=== PATIENT | male | born 1985 | race Caucasian/White ===

== ENCOUNTER 2020-12-04 08:24 | Emergency (ER) | payer OTHER ==
[~2020-12-04] VITALS: Ht 175.3 cm; Wt 95.0 kg
[2020-12-04] MEDS ORDERED: ORPH-16 PO (08:56)
[2020-12-04] MEDS ORDERED: PRED20TA PO (08:56)
[2020-12-04] MEDS ORDERED: LIDO700A21 TP (08:56)
--- NOTE | 2020-12-04 08:57 | PHYS DOC ---
Past History Additional Past Medical Histor: bulging discs Past Surgical History: Other Additional Past Surgical Histo: R knee scope Smoking: Non-smoker Alcohol Use: Occasionally Drug Use: None General Adult EDM: Chief Complaint: BACK PAIN OR INJURY HPI: HPI: 35-year-old male presents via EMS with report of low back pain and numbness to his right lower leg and foot. Reports sensation that he has a weight on his leg that he is unable to move. Patient reports [place] [facility] [place] Patient reports has had a similar episode in the past. Patient reports he has had an MRI approximately 2 years ago that noted bulging disks. At that time patient underwent physical therapy with interval resolution of his symptoms. Patient reports he recently has not been performing his home physical therapy. Patient reports upon starting the symptoms patient stopped the exercises he was performing. Patient was seen and advised to present directly to the emergency department via EMS. Patient reports symptoms have improved upon arrival to the ER. Denies loss of bowel or bladder. Review of Systems: Review of Systems: Constitutional: Denies fever or chills Eyes: Denies redness or eye pain HENT: Denies nasal congestion or sore throat Respiratory: Denies cough or shortness of breath Cardiovascular: Denies chest pain or palpitations GI: Denies abdominal pain, nausea, or vomiting : Denies dysuria or hematuria Musculoskeletal: Reports some low back "tightening "and weakness in his right leg and foot Integument: Denies rash or skin lesions Neurologic: Denies headache; reports focal weakness and paresthesias in his right leg and foot Complete systems were reviewed and found to be within normal limits, except as documented in this note. Allergies: Allergies: Allergies Coded Allergies Type Severity Reaction Last Updated Verified No Known Drug Allergies 12/04/20 No Physical Exam: PE: Constitutional: Well developed, well nourished, no acute distress, non-toxic appearance HENT: Normocephalic, atraumatic Eyes: PERRL, EOMI, conjunctiva normal, no discharge Neck: Normal range of motion, no tenderness, supple Lungs & Thorax: No respiratory distress, equal chest rise and fall Abdomen: Soft, no tenderness Skin: Warm, dry, no erythema, no rash Back: No midline tenderness, right paraspinal lumbar/sacral tenderness on palpation, no CVA tenderness Extremities: No tenderness, ROM intact, no edema, bilateral DP/PT +2 pulses, cap refill to bilateral lower extremities less than 2 seconds Neurologic: Alert and oriented X 3, patient reports some slight decrease sensation to right leg in comparison to left, strength 4 out of 5 of foot with plantar and dorsi flexion Psychologic: Affect normal, judgment normal Current Patient Data: Vital Signs: Vital Signs Date Time Temp Pulse Resp B/P (MAP) Pulse Ox O2 Delivery O2 Flow Rate FiO2 12/04/20 08:28 98.1 88 16 120/68 (85) 97 Room Air EKG: EKG: [] Radiology/Procedures: Radiology/Procedures: [] Heart Score: C/O Chest Pain: N/A Course & Med Decision Making: Course & Med Decision Making Patient presents with HPI and physical exam concerning for acute on chronic back pain with radiculopathy component. No history of trauma. No midline bony tenderness noted. Distal pulses intact. No signs of ischemia noted. Symptoms appear more neuropathic in nature. Symptomatic treatment provided. Patient stable for discharge with outpatient follow-up with PCP/pain management. Pain management referral provided. Discussed findings and plan with patient, who acknowledges understanding and agreement. Shalini Disclaimer: Shalini Disclaimer: This electronic medical record was generated, in whole or in part, using a voice recognition dictation system. Departure Departure: Impression: Primary Impression: Acute exacerbation of chronic low back pain Additional Impression: Radiculopathy of lumbar region Disposition: 01 HOME / SELF CARE / HOMELESS Condition: STABLE Referrals: PCP,UNKNOWN (PCP) Patient Instructions: Back Pain, Adult, [id number], Lumbosacral Radiculopathy Additional Instructions: May also use over the counter Ibuprofen and/or Tylenol for pain or discomfort. ICE area of discomfort 20 min on then leave off next 20 mins. Repeat several times daily as needed. Call Dr. Magen Haas (pain management) Address: [address] [facility], [place] [address] Scripts Lidocaine (Lidocaine PATCH ) 1 Each Adh..patch 1 EACH TP DAILY for FOR LOCAL PAIN, #20 PATCH REMOVE AFTER 12 HOURS Prov: NEHA BENAVIDEZ DO 12/04/20 Orphenadrine Citrate (ORPHENADRINE CITRATE) 100 Mg Tablet.er 1 TAB PO BID PRN for MUSCLE PAIN, #14 TAB 0 Refills Prov: NEHA BENAVIDEZ DO 12/04/20 Prednisone (PREDNISONE) 20 Mg Tablet 2 TAB PO DAILY for Back pain, #8 TAB Start this prescription tomorrow, Tuesday12/05/20 Prov: NEHA BENAVIDEZ DO 12/04/20 NEHA BENAVIDEZ DO December 04, 2020 08:57
[2020-12-04] MEDS ORDERED: DEXAMETHASONE 4 MG TABLET PO ONE (09:00)
[2020-12-04] MEDS ORDERED: ORPHENADRINE CITRATE 60 MG/2 ML VIAL. IM ONE (09:00)
[2020-12-04] MEDS ORDERED: KETOROLAC 30 MG/ML VIAL. IM ONE (09:00)
[2020-12-04 09:30] VITALS: BP 131/83
== END 2020-12-04 09:34 | disposition home or self-care (01) ==
LOC: ER 08:24
DX: M54.16 Radiculopathy, lumbar region (principal)
CPT/HCPCS: 96372; 99284; J1885; J2360; J8540